=== PATIENT | female | born 1995 | race African-American/Black ===

== ENCOUNTER 2018-12-15 19:47 | Observation (INO) | payer MEDICAID ==
[~2018-12-15] VITALS: Ht 160 cm; Wt 73.5 kg
== END 2018-12-15 22:15 | disposition home or self-care (01) ==
LOC: 8 EST LDRP 19:47
PROVIDERS: ADMIT Obstetrics & Gynecology; ATTEND Obstetrics & Gynecology
DX: O36.8120 Decreased fetal movements, second trimester, not applicable or unspecified (principal); Z3A.27 27 weeks gestation of pregnancy
CPT/HCPCS: 76805; 76818; 99281; G0378

== ENCOUNTER 2019-02-21 16:44 | Inpatient (IN) | payer MEDICAID ==
[~2019-02-21] VITALS: Ht 160 cm; Wt 81.2 kg
[2019-02-21] MEDS: LACTATED RINGERS 1,000 ML IV SCH ×2 (18:18→20:36)
[2019-02-21 18:48] LABS: CLARITY URINE CLEAR (CLEAR); COLOR URINE YELLOW (YELLOW); KETONES URINE NEGATIVE (NEGATIVE); LEUKOCYTE ESTERASE URINE TRACE (NEGATIVE); NITRITE URINE NEGATIVE (NEGATIVE); OCCULT BLOOD URINE TRACE (NEGATIVE); PROTEIN URINE NEGATIVE (NEGATIVE); SPECIFIC GRAVITY URINE 1.001 (1.005-1.030); UROBILINOGEN URINE 0.2 E.U./dL (0.2-1.0)
[2019-02-21] MEDS ORDERED: METHYLERGONOVINE MALEATE 0.2 MG/ML IM PRN (19:00)
[2019-02-21 19:23] LABS: *BARBITURATES SCREEN URINE NEGATIVE (NEGATIVE); *BENZODIAZEPINES SCREEN URINE NEGATIVE (NEGATIVE); *COCAINE SCREEN URINE NEGATIVE (NEGATIVE); METHADONE URINE SCREEN NEGATIVE (NEGATIVE); OPIATES URINE SCREEN NEGATIVE (NEGATIVE)
[2019-02-21 19:24] LABS: CANNABINOID URINE SCREEN NEGATIVE (NEGATIVE); PHENCYCLIDINE URINE SCREEN NEGATIVE (NEGATIVE)
[2019-02-21 19:40] LABS: *AMPHETAMINES SCREEN URINE PRESUMTIVE POSITIVE (NEGATIVE)
[2019-02-21] MEDS ORDERED: PENICILLIN G POTASSIUM 5 MMU in DEXT 5% WATER 100 ML IV SCH (20:30)
[2019-02-21] MEDS: BUTORPHANOL TARTRATE 2 MG/ML VIAL IV PRN ×2 (20:36→22:26)
[2019-02-21 20:45] LABS: BASOPHILS % 0.5 % (0.0-2.0); EOSINOPHILS % 0.5 % (0.0-5.0); HEMATOCRIT. 37.3 % (36.0-48.0); HEMOGLOBIN. 12.7 g/dL (12.0-16.0); LYMPHOCYTES % 16.7 % (20.0-50.0); MEAN CORPUSCULAR HEMOGLOBIN 29.5 pg (28.0-32.0); MEAN CORPUSCULAR VOLUME 86.6 fL (81.0-99.0); MEAN PLATELET VOLUME 9.4 fl (7.4-10.4); MONOCYTES % 7.5 % (2.0-8.0); NEUTROPHILS % 74.8 % (40.0-76.0); PLATELET 314 x1000/uL (130-400); RED BLOOD CELL COUNT 4.31 mill/uL (4.2-5.4); RED CELL DISTRIBUTION WIDTH 12.7 % (11.6-14.6)
[2019-02-21] MEDS: DEXT 5%/LR + PITOCIN 20UNITS/L 1,000 ML IV SCH (20:48)
[2019-02-21 20:49] LABS: CHLORIDE 110 mEq/L (98-107)
[2019-02-21 20:51] LABS: INR 0.8; PARTIAL THROMBOPLASTIN TIME 31.2 sec (23.4-31.0)
[2019-02-21 21:20] LABS: HEPATITIS B SURFACE ANTIGEN NEGATIVE
[2019-02-21] MEDS ORDERED: ROPIVACAINE HCL/PF EPIDURAL 200 ML EPI SCH (21:45)
[2019-02-21 21:46] LABS: PROTHROMBIN TIME 8.7 sec (9.6-11.0)
[2019-02-21] MEDS ORDERED: PRENATAL VITAMIN (21:59)
[2019-02-21] MEDS ORDERED: FERROUS SULFATE (21:59)
[2019-02-21] MEDS ORDERED: FOLIC ACID (21:59)
[2019-02-22] MEDS ORDERED: PENICILLIN G POTASSIUM 2.5 MMU in DEXTROSE 5% WATER 50 ML IV SCH (00:30)
[2019-02-22] MEDS: LACTATED RINGERS 1,000 ML IV SCH (00:38)
[2019-02-22] MEDS ORDERED: MINERAL OIL 30ML BOTTLE PR NR (01:30)
[2019-02-22] MEDS ORDERED: LIDOCAINE HCL 1% 20ML VIAL (Pyxis) INJ INFIL SCH (01:30)
[2019-02-22] MEDS ORDERED: DEXT 5%/LR + PITOCIN 20UNITS/L 1,000 ML IV SCH (03:01)
[2019-02-22] MEDS: DEXT 5%/LR + PITOCIN 20UNITS/L 1,000 ML IV SCH (03:02)
[2019-02-22] MEDS ORDERED: IBUPROFEN 400MG TABLET PO PRN (03:15)
[2019-02-22] MEDS ORDERED: RHO(D) IMMUNE GLOBULIN 300 MCG/SYR IM PRN (03:15)
[2019-02-22] MEDS: IBUPROFEN 800MG TABLET PO PRN ×2 (04:38→17:21)
[2019-02-22 05:30] VITALS: BP 130/80
[2019-02-22 08:00] VITALS: BP 121/70
[2019-02-22] MEDS: PRENATAL VIT/FE FUMARATE/FA TABLET PO SCH (09:00)
[2019-02-22 15:33] VITALS: BP 133/76
[2019-02-22 19:30] VITALS: BP 125/86
[2019-02-22] MEDS: DOCUSATE SODIUM 100MG CAPSULE PO SCH (21:50)
[2019-02-23] MEDS: IBUPROFEN 800MG TABLET PO PRN ×2 (04:00→11:59)
[2019-02-23 08:00] VITALS: BP 112/76
[2019-02-23] MEDS ORDERED: TETANUS, DIPHTHERIA, PERTUSSIS VAC/PF 0.5ML (>7YR OLD) IM ONE (08:00)
[2019-02-23 08:49] LABS: BASOPHILS % 1.2 % (0.0-2.0); HEMATOCRIT. 37.9 % (36.0-48.0); HEMOGLOBIN. 12.8 g/dL (12.0-16.0); LYMPHOCYTES % 25.6 % (20.0-50.0); MEAN CORPUSCULAR HEMOGLOBIN 29.3 pg (28.0-32.0); MEAN CORPUSCULAR VOLUME 86.6 fL (81.0-99.0); MONOCYTES % 5.4 % (2.0-8.0); NEUTROPHILS % 65.8 % (40.0-76.0); PLATELET 304 x1000/uL (130-400); RED BLOOD CELL COUNT 4.38 mill/uL (4.2-5.4); RED CELL DISTRIBUTION WIDTH 12.8 % (11.6-14.6)
[2019-02-23] MEDS ORDERED: INFLUENZA VIRUS VACCINE(AFLURIA) 0.5ML SYR IM ONE (10:00)
[2019-02-23] MEDS: PRENATAL VIT/FE FUMARATE/FA TABLET PO SCH (11:32)
[2019-02-23 16:39] VITALS: BP 106/52
[2019-02-23] MEDS: DOCUSATE SODIUM 100MG CAPSULE PO SCH (21:11)
[2019-02-23 22:00] VITALS: BP 120/60
[2019-02-24 05:35] VITALS: BP 115/72
[2019-02-24] MEDS ORDERED: MEASLES,MUMPS&RUBELLA VACCINE 1 VIAL SUBCUT ONE (07:15)
[2019-02-24 08:00] VITALS: BP 107/55
[2019-02-24] MEDS ORDERED: IBUP-2029 MT (08:22)
== END 2019-02-24 12:00 | disposition home or self-care (01) | DRG 560 ==
LOC: INTOOBSV 16:44 → 8 EST LDRP 16:44 → OBSVTOIN 16:44 → 8EST 02-22 05:00
PROVIDERS: ADMIT Obstetrics & Gynecology; ATTEND Obstetrics & Gynecology
PROC: 10E0XZZ Delivery of Products of Conception, External Approach (ICD-10-PCS; principal; 2019-02-22)
PROC: 0UQGXZZ Repair Vagina, External Approach (ICD-10-PCS; 2019-02-22)
PROC: 3E0R3BZ Introduction of Anesthetic Agent into Spinal Canal, Percutaneous Approach (ICD-10-PCS; 2019-02-22)
PROC: 00HU33Z Insertion of Infusion Device into Spinal Canal, Percutaneous Approach (ICD-10-PCS; 2019-02-22)
DX: O41.03X0 Oligohydramnios, third trimester, not applicable or unspecified (principal); O99.324 Drug use complicating childbirth; O71.4 Obstetric high vaginal laceration alone; O77.0 Labor and delivery complicated by meconium in amniotic fluid; F15.10 Other stimulant abuse, uncomplicated; Z37.0 Single live birth; Z3A.37 37 weeks gestation of pregnancy
CPT/HCPCS: 36415; 76805; 76818; 80305; 80307; 81003; 86592; 86703; 86762; 86850; 86870; 86900; 87340; 90686; 90707; 90715; 99281; G0378; J0595; J2540; J2590; J2795; J3490; J7060; A4315

== ENCOUNTER 2020-11-14 22:50 | Inpatient (IN) | payer MEDICAID ==
[~2020-11-14] VITALS: Ht 160 cm; Wt 82.6 kg
[~2020-11-14 22:50] MED LIST: FERROUS SULFATE; IBUP-2029 MT; PRENATAL VITAMIN
[2020-11-14] MEDS ORDERED: METHYLERGONOVINE MALEATE 0.2 MG/ML IM PRN (23:30)
[2020-11-14] MEDS ORDERED: RHO(D) IMMUNE GLOBULIN 300 MCG/SYR IM ONE (23:30)
[2020-11-14] MEDS ORDERED: IBUPROFEN 400MG TABLET PO PRN (23:45)
[2020-11-14] MEDS ORDERED: RHO(D) IMMUNE GLOBULIN 300 MCG/SYR IM PRN (23:45)
[2020-11-14] MEDS ORDERED: LANOLIN OINT 7GM TUBE TOP PRN (23:45)
[2020-11-15] MEDS ORDERED: FERR-71 PO (00:24)
[2020-11-15] MEDS ORDERED: PREN1TAB23 PO (00:24)
[2020-11-15] MEDS ORDERED: LACTATED RINGERS 1,000 ML IV SCH (00:30)
[2020-11-15] MEDS ORDERED: DEXT 5%/LR + PITOCIN 20UNITS/L 1,000 ML IV SCH (00:30)
[2020-11-15] MEDS: DEXT 5%/LR + PITOCIN 20UNITS/L 1,000 ML IV SCH ×2 (00:52→04:09)
[2020-11-15] MEDS: IBUPROFEN 800MG TABLET PO PRN ×2 (01:40→17:45)
[2020-11-15 01:54] LABS: CLARITY URINE TURBID (CLEAR); COLOR URINE RED (YELLOW); KETONES URINE 2+ (NEGATIVE); LEUKOCYTE ESTERASE URINE 2+ (NEGATIVE); NITRITE URINE POSITIVE (NEGATIVE); OCCULT BLOOD URINE 2+ (NEGATIVE); PROTEIN URINE 2+ (NEGATIVE); SPECIFIC GRAVITY URINE 1.022 (1.005-1.030); UROBILINOGEN URINE 0.2 E.U./dL (0.2-1.0)
[2020-11-15 01:54] LABS: BASOPHILS % 0.3 % (0.0-2.0); EOSINOPHILS % 0.2 % (0.0-5.0); HEMOGLOBIN. 12.9 g/dL (12.0-16.0); LYMPHOCYTES % 10.8 % (20.0-50.0); MEAN CORPUSCULAR HEMOGLOBIN 28.9 pg (28.0-32.0); MEAN CORPUSCULAR VOLUME 87.6 fL (81.0-99.0); MEAN PLATELET VOLUME 9.8 fl (7.4-10.4); MONOCYTES % 3.9 % (2.0-8.0); NEUTROPHILS % 84.8 % (40.0-76.0); PLATELET 300 x1000/uL (130-400); RED BLOOD CELL COUNT 4.45 mill/uL (4.2-5.4); RED CELL DISTRIBUTION WIDTH 12.8 % (11.6-14.6)
[2020-11-15 02:02] LABS: INR 0.9; PARTIAL THROMBOPLASTIN TIME 29.7 sec (23.4-31.0); PROTHROMBIN TIME 9.7 sec (9.6-11.0)
[2020-11-15 02:15] LABS: *BARBITURATES SCREEN URINE NEGATIVE (NEGATIVE); *BENZODIAZEPINES SCREEN URINE NEGATIVE (NEGATIVE); *COCAINE SCREEN URINE NEGATIVE (NEGATIVE)
[2020-11-15 02:16] LABS: METHADONE URINE SCREEN NEGATIVE (NEGATIVE)
[2020-11-15 02:19] LABS: OPIATES URINE SCREEN NEGATIVE (NEGATIVE); PHENCYCLIDINE URINE SCREEN NEGATIVE (NEGATIVE)
[2020-11-15 02:21] LABS: *AMPHETAMINES SCREEN URINE PRESUMTIVE POSITIVE (NEGATIVE); CANNABINOID URINE SCREEN PRESUMTIVE POSITIVE (NEGATIVE)
[2020-11-15 02:30] LABS: HEPATITIS B SURFACE ANTIGEN NEGATIVE
[2020-11-15 07:02] LABS: BASOPHILS % 0.4 % (0.0-2.0); EOSINOPHILS % 0.4 % (0.0-5.0); HEMATOCRIT. 30.7 % (36.0-48.0); HEMOGLOBIN. 10.4 g/dL (12.0-16.0); LYMPHOCYTES % 17.1 % (20.0-50.0); MEAN CORPUSCULAR HEMOGLOBIN 29.4 pg (28.0-32.0); MEAN CORPUSCULAR VOLUME 86.7 fL (81.0-99.0); MEAN PLATELET VOLUME 9.5 fl (7.4-10.4); MONOCYTES % 8.7 % (2.0-8.0); NEUTROPHILS % 73.4 % (40.0-76.0); PLATELET 256 x1000/uL (130-400); RED BLOOD CELL COUNT 3.54 mill/uL (4.2-5.4); RED CELL DISTRIBUTION WIDTH 12.9 % (11.6-14.6)
[2020-11-15 07:30] VITALS: BP 120/75
[2020-11-15 08:00] VITALS: BP 122/75
[2020-11-15] MEDS ORDERED: PRENATAL VIT/FE FUMARATE/FA TABLET PO SCH (09:00)
[2020-11-15] MEDS ORDERED: MEASLES,MUMPS&RUBELLA VACCINE 1 VIAL SUBCUT ONE (13:00)
[2020-11-15 16:00] VITALS: BP 110/66
[2020-11-15 17:35] VITALS: BP 110/66
[2020-11-15 20:00] VITALS: BP 107/67
[2020-11-15] MEDS ORDERED: DIPHENHYDRAMINE 25MG CAPSULE PO PRN (21:15)
[2020-11-16 04:00] VITALS: BP 90/66
[2020-11-16] MEDS ORDERED: IBUP-2030 PO (09:37)
[2020-11-16] MEDS: IBUPROFEN 800MG TABLET PO PRN (09:48)
[2020-11-23 09:11] LABS: AMPHETAMINE CONF URINE Positive (.); CANNABINOID CONFIRMATION URINE Positive (.)
== END 2020-11-16 22:20 | disposition home or self-care (01) | DRG 548 ==
LOC: 8EST NSY 22:50 → OBSVTOIN 22:50 → 8 EST LDRP 23:21 → 8EST 11-15 03:00
PROVIDERS: ADMIT Obstetrics & Gynecology; ATTEND Obstetrics & Gynecology
PROC: 10D17ZZ Extraction of Products of Conception, Retained, Via Natural or Artificial Opening (ICD-10-PCS; principal; 2020-11-14)
DX: O73.0 Retained placenta without hemorrhage (principal); D62 Acute posthemorrhagic anemia; O99.03 Anemia complicating the puerperium; O99.335 Smoking (tobacco) complicating the puerperium; F17.200 Nicotine dependence, unspecified, uncomplicated; F19.10 Other psychoactive substance abuse, uncomplicated; O99.325 Drug use complicating the puerperium; Z20.822 Contact with and (suspected) exposure to COVID-19
CPT/HCPCS: 36415; 80305; 80349; 80359; 81003; 85025; 86592; 86703; 86762; 86850; 86900; 87340; 87426; 90707; 99281; G0378; J2590; Q0163

== ENCOUNTER 2021-10-13 22:53 | Observation (INO) | payer MEDICAID ==
[~2021-10-13] VITALS: Ht 157.5 cm; Wt 79.4 kg
[~2021-10-13 22:53] MED LIST changes: +FERR-71 PO; +IBUP-2030 PO; +PREN1TAB23 PO
[2021-10-14] MEDS ORDERED: DOCU-150 MT (02:35)
[2021-10-14] MEDS ORDERED: URSO300C4 MT (02:35)
[2021-10-14] MEDS ORDERED: CALC-1042 MT (02:35)
== END 2021-10-14 04:30 | disposition home or self-care (01) ==
LOC: 8 EST LDRP 22:53
PROVIDERS: ADMIT Obstetrics & Gynecology; ATTEND Obstetrics & Gynecology
DX: O36.8130 Decreased fetal movements, third trimester, not applicable or unspecified (principal); O26.893 Other specified pregnancy related conditions, third trimester; R10.2 Pelvic and perineal pain; Z3A.36 36 weeks gestation of pregnancy
CPT/HCPCS: 59025; 76805; 76817; 76818; G0378; 99281